=== PATIENT | male | born 1985 | race Caucasian/White ===

== ENCOUNTER → 2016-06-04 | Outpatient (CLI) | payer BC ==
[2016-06-04 09:42] LABS: CHLORIDE,CL 107 mmol/L (98-110); SODIUM,NA 138 mmol/L (136-146)
== END ==
LOC: MW.LAB 08:42
PROVIDERS: ATTEND Nurse Practitioner
DX: L40.9 Psoriasis, unspecified (principal)
CPT/HCPCS: 36415; 80053; 85025; 86480

== ENCOUNTER 2022-04-08 21:33 | Emergency (ER) | payer BC ==
[2022-04-08] MEDS ORDERED: LORazepam 2 MG/ML SDV IVPUSH ONE (21:55)
[2022-04-08 22:36] LABS: CORONAVIRUS COVID-19 NAA NEGATIVE (NEGATIVE); INFLUENZA A NAA NEGATIVE (NEGATIVE); INFLUENZA B NAA NEGATIVE (NEGATIVE); RESPIRATORY SYNCYTIAL VIR NAA NEGATIVE (NEGATIVE)
[2022-04-08 22:51] LABS: CARBON DIOXIDE,CO2 28.1 mmol/L (21.0-32.0)
== END 2022-04-08 23:44 | disposition home or self-care (01) ==
LOC: MW.ED 21:33
DX: F41.9 Anxiety disorder, unspecified (principal); Z20.822 Contact with and (suspected) exposure to COVID-19
CPT/HCPCS: 0241U; 36415; 71045; 80048; 84484; 85025; 93005; 96374; 99284; J2060; 93010